=== PATIENT | female | born 1975 | race Caucasian/White ===

== ENCOUNTER 2020-04-14 09:40 | Outpatient (RCR) | payer MEDICAID, SELFPAY ==
[2020-04-14 10:07] VITALS: BP 147/100; PULSE 102; RESP 22; TEMP 36.8; BMI 46.5
[2020-04-14 12:08] VITALS: BP 138/90; PULSE 93; RESP 20
--- NOTE | 2020-04-14 12:24 | HP.PCM_ITS ---
(1) Morbid obesity with BMI of 45.0-49.9, adult Status: Chronic Current Visit: Yes Code(s): E66.01 - Morbid (severe) obesity due to excess calories; Z68.42 - Body mass index (BMI) 45.0-49.9, adult (2) Lymphedema in adult patient Status: Chronic Current Visit: Yes Code(s): I89.0 - Lymphedema, not elsewhere classified (3) Lymphedema of both lower extremities Status: Chronic Current Visit: Yes Code(s): I89.0 - Lymphedema, not elsewhere classified (4) History of opioid abuse Status: Chronic Current Visit: No Code(s): F11.11 - Opioid abuse, in remission (5) Depression Status: Chronic Current Visit: No Code(s): F32.9 - Major depressive disorder, single episode, unspecified (6) Anxiety Status: Chronic Current Visit: No Code(s): F41.9 - Anxiety disorder, unspecified (7) Osteoarthritis Status: Chronic Current Visit: Yes Qualifiers: Osteoarthritis location: knee Laterality: right Code(s): M19.90 - Unspecified osteoarthritis, unspecified site (8) Urinary incontinence Status: Chronic Current Visit: No Code(s): R32 - Unspecified urinary incontinence (9) History of right knee joint replacement Status: Chronic Current Visit: Yes Code(s): Z96.651 - Presence of right artificial knee joint (10) 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 Current Visit: Yes Code(s): Z87.39 - Personal history of other diseases of the musculoskeletal system and connective tissue (11) Surgical wound dehiscence Status: Chronic Current Visit: Yes Qualifiers: Encounter type: initial encounter Qualified Code(s): T81.31XA - Disruption of external operation (surgical) wound, not elsewhere classified, initial encounter Code(s): T81.31XA - Disruption of external operation (surgical) wound, not elsewhere classified, initial encounter (12) Surgical wound infection Status: Chronic Current Visit: Yes Code(s): T81.49XA - Infection following a procedure, other surgical site, initial encounter History of Present Illness Date of Service: 04/14/20 Chief Complaint: Surgical wound dehiscence and infection of the right knee, status post right total knee replacement surgery History of Wound: This is a 44-year-old female with a complicated past surgical history. On November 22, 2016, the patient underwent right total knee replacement arthroplasty. The seizure was performed by Dr. Elizabeth Curry. The right total knee replacement prosthesis became infected, and required removal and placement of an antibiotic spacer, the procedure which was performed by Dr. Ricardo Cruz on April 13, 2018. Subsequently, the patient underwent removal of the antibiotic spacer with reimplantation of a right total knee arthroplasty prosthesis on September 28, 2018. The reimplanted prosthetic knee joint became infected, and the patient underwent a right knee arthrotomy with irrigation and debridement and placement of a negative pressure dressing on November 19, 2018, performed by Dr. Urbano Olson. Then on May 19, 2019, the patient underwent incision and drainage of a subcutaneous right knee abscess with arthrotomy and synovectomy with debridement of the right knee, performed by Dr. Remington Abel. On February 07, 2020, Dr. Cruz performed a superficial irrigation and debridement of the right knee, at which time an abscess was noted within the surgical incision, associated with a sinus tract. At the time of the procedure, there appeared to be no communication with the underlying knee joint or bone. On March 03, 2020, the sutures were removed from her most recent surgery. According to the patient, she has had an additional washout procedure since the time of her suture removal. The patient is very limited in her ambulation, requiring a walker. She suffers from severe lymphedema in both lower extremities, which appears to be chronic, and likely congenital. She claims to sleep on a flat mattress at night. However, she is relatively inactive, and spends a good part of each day sitting idly. The patient is also morbidly obese, which also limits her mobility. Patient has recently been cared for during her recovery at [facility], having returned to her home only a few days ago. She is , though from her spouse. She lives with her son, who is able to provide some assistance in her care. According to the patient, oral doxycycline from March 05 to April 07. She is currently taking no antibiotics. 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 She denies a history of myocardial infarction, congestive heart failure, cerebrovascular accident, diabetes mellitus, pulmonary disease, renal disease, hyperlipidemia, and thyroid disease. Surgical History: - - Patient has had multiple surgical procedures involving her right knee, as documented above. Allergies/Adverse Reactions: Allergies morphine Adverse Reaction (Verified 04/14/20 10:32) Hives Home Medications: Ambulatory Orders Medication Instructions Recorded Albuterol Sulfate [Albuterol 2 puff IH Q4H PRN 04/14/20 Sulfate HFA] Collagenase [Santyl] 1 applic TOPICAL DAILY 04/14/20 Furosemide [Lasix] 40 mg PO DAILY 04/14/20 Hydrocortisone 1% Crm [Hytone] 1 applic TOPICAL BID PRN 04/14/20 Lorazepam 0.5 mg PO Q12H PRN 04/14/20 Magnesium Hydroxide [Milk Of 30 ml PO DAILY PRN PRN 04/14/20 Magnesia] - Family History Paternal - - Patient's father at the age of 64. His cause of is uncertain, though he was known to be an alcoholic. Patient's mother is living, age 66, and healthy. Social History: The patient is , though . She lives with her son. She denies the use of alcohol and tobacco products. She is unemployed, and currently on disability. Lives: With Family Smoking Status: Never smoker Tobacco Use: Non-smoker Alcohol: None Drugs: None Review of Systems Constitutional: Denies: Chills, Fever, Weight Change Eyes: Denies: Pain, Vision Change HEENT: Denies: Difficulty Hearing, Difficulty Swallowing, Sinus Congestion Cardiovascular: Denies: Chest Pain, Palpitations Respiratory: Denies: Cough, Shortness of Breath Gastrointestinal: Denies: Diarrhea, Nausea, Vomiting Genitourinary: Denies: Dysuria, Hematuria Endocrine: Denies: Heat/ Cold Intolerance, Polydipsia, Polyuria Hematologic/ Lymphatic: Reports: - - The patient has a history of chronic lower extremity lymphedema.. Denies: Easy Bruising, Easy Bleeding - Physical Exam Vital Signs Temp Pulse Resp BP 98.2 F 93 20 H 138/90 H 04/14/20 10:07 04/14/20 12:08 04/14/20 12:08 04/14/20 12:08 General: Alert, Oriented x3, Cooperative, No apparent distress, Well developed, Well nourished, - - The patient is morbidly obese. HEENT: Atraumatic, PERRLA, EOMI, Normocephalic Oral: Moist Mucosa Neck: No JVD Lungs: Normal air movement Abdomen: Non-Distended Extremities: No clubbing, No cyanosis, No Calf Tenderness, - - Severe bilateral lower extremity lymphedema is noted. A longitudinal incision is noted overlying the right knee. Near the inferior pole of the longitudinal incision, there is a dehiscence, and a wound which is undermined superiorly. Approximately 2 cm superiorly, there is also a small dehiscent portion of the incision. The more superior of the 2 wounds is quite superficial the dimensions of each wound is documented elsewhere. There is some drainage from the inferior wound, which has been cultured by swab for both aerobic and anaerobic bacterial growth. Within the inferior of the 2 wounds, there appears to be a moderate amount of bioburden and nonviable tissue. There is no significant periwound erythema. Skin: No rashes Wound Measurements and Assessment WC - Nurse 1 - General Ulcer Measurement Start: 04/14/20 10:00 Freq: Status: Active Protocol: Activity Type Activity Date Activity User E-Sign Co-Sign Detail Recorded Client Recorded Date Recorded By Document 04/14/20 10:07 [facility] [id number] 04/14/20 10:29 [facility] 04/14/20 10:07 Wound Center Nurse 1 [Ulcer Assessment] #2- R KNEE CLUSTER SUPERIOR -Combined with other wound No -Current Size (cm) - Length 2.2 -Current Size (cm) - Width 0.3 -Current Size (cm) - Depth 0.2 -Total Square Cm 0.66 -Date of Last Picture (Recall this 04/14/20 field) -Photo Taken Yes -Epithelialization None Present -Tunneling No -Undermining/Tunneling No -Circular Undermining No -Exudate Amt Medium -Exudate Type Serosanguineous -Wound Margin Distinct, Outline Attached -Granulation Amt Small (1-33%) -Granulation Quality Red -Slough/Fibrin Yes -Necrosis Amt Large (67-100%) -Necrotic Tissue Type Adherent Slough -Texture ([place]-wound Skin Appearance) Assessed, Localized Edema ,Scarring -Moisture ([place]-wound Skin Appearance Assessed ) -Color ([place]-wound Skin Appearance) Assessed, Erythema -Temperature ([place]-wound Skin No Abnormality Appearance) (Pt Warm) -Tenderness on Palpation ([place]-wound Yes Skin Appearance) -Ulcer Cleansing SOAPY WATER -Foul Odor after Cleansing No -Anesthetic Used 5% Lidocaine Gel #1- R KNEE -Combined with other wound No -Current Size (cm) - Length 2.2 -Current Size (cm) - Width 0.3 -Current Size (cm) - Depth 0.2 -Total Square Cm 0.66 -Date of Last Picture (Recall this 04/14/20 field) -Photo Taken Yes -Epithelialization None Present -Tunneling No -Undermining/Tunneling No -Circular Undermining No -Exudate Amt Medium -Exudate Type Serosanguineous -Wound Margin Distinct, Outline Attached -Granulation Amt None Present (0 %) -Slough/Fibrin Yes -Necrosis Amt Large (67-100%) -Necrotic Tissue Type Adherent Slough -Texture ([place]-wound Skin Appearance) Assessed, Localized Edema ,Scarring -Moisture ([place]-wound Skin Appearance Assessed ) -Color ([place]-wound Skin Appearance) Assessed, Erythema -Temperature ([place]-wound Skin No Abnormality Appearance) (Pt Warm) -Tenderness on Palpation ([place]-wound Yes Skin Appearance) -Ulcer Cleansing SOAPY WATER -Foul Odor after Cleansing No -Anesthetic Used 5% Lidocaine Gel [Edema Assessment] -Lower Limb Edema Present Yes -Right Calf (cm) 71.2 -Right Ankle (cm) 44.6 -Left Calf (cm) 84 -Left Ankle (cm) 40.7 WC - Nurse 3 - General Ulcer D/C NN Start: 04/14/20 10:00 Freq: Status: Active Protocol: Activity Type Activity Date Activity User E-Sign Co-Sign Detail Recorded Client Recorded Date Recorded By Document 04/14/20 12:08 [facility] [id number] 04/14/20 12:11 [facility] 04/14/20 12:08 Wound Care Nurse 3 [Wound Dressing] #2- R KNEE CLUSTER SUPERIOR -Ulcer Cleansing Rinsed/ Irrigated with Saline -Foul Odor after Cleansing No -Primary Dressing Applied Nugauze, Plain Iodoform -Other Dressing 07/20 in -Primary Dressing Covered/Secured Dry Gauze, with Secured with Tape,Other -Other Covering abd -Nugauze, Plain Iodoform 07/20 1 #1- R KNEE -Ulcer Cleansing Rinsed/ Irrigated with Saline -Foul Odor after Cleansing No -Primary Dressing Applied Other -Other Dressing nugauze 07/20 in plain -Primary Dressing Covered/Secured Dry Gauze, with Secured with Tape,Other -Other Covering abd [Post Procedure Tolerated] -Treatment Response Procedure Tolerated Well Vital Signs [Pulse] -Pulse Rate (60-100) 93 -Pulse Location Monitor [Respirations] -Respiratory Rate (12-18) 20 H -Respiratory rate source Observation -Oxygen Delivery Method Room Air [Blood Pressure] -Blood Pressure (90/60-120/80) 138/90 H -Blood Pressure Mean (mm Hg) 106 -Source Monitor -Position Sitting -Blood Pressure Location Left Forearm Pain Scale: 0-10 Numeric [Pain] -Is Patient Pain Free? Yes WC - Visit Discharge [Visit Discharge Information] -Discharge Condition Stable -Ambulatory Status Ambulatory, Walker -Transportation Private Auto Neurological: Cranial nerves II-XII grossly intact, Neuro grossly intact Psych/Mental Status: Normal Affect, Appropriate, Alert and oriented to time, place, person, mood and affect Debridement Note Post-Debridement Measurements/Treatment WC - Nurse 3 - General Ulcer D/C NN Start: 04/14/20 10:00 Freq: Status: Active Protocol: Activity Type Activity Date Activity User E-Sign Co-Sign Detail Recorded Client Recorded Date Recorded By Document 04/14/20 12:08 [facility] [id number] 04/14/20 12:11 [facility] 04/14/20 12:08 Wound Care Nurse 3 #2- R KNEE CLUSTER SUPERIOR -Ulcer Cleansing Rinsed/ Irrigated with Saline -Foul Odor after Cleansing No -Primary Dressing Applied Nugauze, Plain Iodoform -Other Dressing 07/20 in -Primary Dressing Covered/Secured with Dry Gauze, Secured with Tape,Other -Other Covering abd -Nugauze, Plain Iodoform 07/20 1 #1- R KNEE -Ulcer Cleansing Rinsed/ Irrigated with Saline -Foul Odor after Cleansing No -Primary Dressing Applied Other -Other Dressing nugauze 1/4 in plain -Primary Dressing Covered/Secured with Dry Gauze, Secured with Tape,Other -Other Covering abd Treatment Response Procedure Tolerated Well Vital Signs Pulse Rate (60-100) 93 Pulse Location Monitor Respiratory Rate (12-18) 20 H Respiratory rate source Observation Oxygen Delivery Method Room Air Blood Pressure (90/60-120/80) 138/90 H Blood Pressure Mean (mm Hg) 106 Source Monitor Position Sitting Blood Pressure Location Left Forearm Pain Scale: 0-10 Numeric Is Patient Pain Free? Yes WC - Visit Discharge Discharge Condition Stable Ambulatory Status Ambulatory, Walker Transportation Private Auto Laterality: Right - Knee Type of Debridement: Excisional debridement Anesthesia Used: 5% Lidocaine Gel Depth: Down to and including healthy tissue, in the subcutaneous layer Percentage of wound debrided: 100 Instrument Used: 5mm curette Tissue Removed: Bioburden and nonviable tissue Severity: Fat Layer Exposed Amount of bleeding with debridement: Mild Bleeding Controlled with: Compression and gauze Patient tolerated procedure well Assessment/Plan Active Problems Morbid obesity with BMI of 45.0-49.9, adult (Chronic) Lymphedema in adult patient (Chronic) Lymphedema of both lower extremities (Chronic) Osteoarthritis (Chronic) History of right knee joint replacement (Chronic) 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 She has previously undergone right total knee replacement surgery, the prosthesis of which became infected, and required placement of an antibiotic spacer and removal of the prosthesis. The prosthesis was subsequently replaced. The procedures are documented chronologically above. The patient presents at this time with an apparent wound infection and dehiscence of the inferior pole of her surgical incision. While it is presumed that there is no extension into the underlying joint space, this cannot be totally excluded. Plan: We are to obtain a battery of diagnostic studies. First, laboratory tests will be obtained, including a CBC, comprehensive metabolic profile, and a serum prealbumin. Swab cultures have been obtained of the patient's right knee wound, for both aerobic and anaerobic bacterial growth. These results will be awaited. A noninvasive lower extremity arterial study is to be obtained. The severe lymphedema in the patient's lower extremities may preclude the performance of this study, yet to be determined. An ultrasound of the right knee joint is to be ordered, to determine whether there is significant fluid within the knee joint itself, which may be an indication of infection, and may warrant aspiration. In terms of therapeutic intervention, the patient has been advised to elevate her lower extremities as much as possible. She is to elevate her lower extremities to heart level, or higher. She is to continue sleeping on a flat mattress at night. Activity has been encouraged. Prolonged, idle sitting has been discouraged. Weight loss has been recommended. We will ultimately implement some form of compression once the results of her noninvasive lower extremity arterial study are known. Ultimately, we intend to refer the patient to our Lymphedema Clinic, though such referral must await complete healing of her wound. We are to initiate treatment of the dehiscent surgical right knee wound using saline moistened Nu Gauze packing on a daily basis. The patient has been instructed in the appropriate means of packing, with anticipation that she will be assisted by her son. The patient is to return in 1 week for reass essment. We will await the results of the diagnostic studies, and respond accordingly. The goal is to determine with reasonable certainty whether infection involves the knee joint. If this is determined to be unlikely, then the focus will remain solely on the healing relative to the soft tissues in the area of the right knee. The patient is not a smoker. Influenza vaccine was not administered today. Patient weighs 280 pounds. She stands 5 feet 5 inches tall. Her BMI is 46.6, which places her in a class III obesity category. Weight loss has been recommended, in collaboration with her primary care physician has been advised.
== END 2020-04-15 23:59 ==
LOC: WC 09:40
PROVIDERS: Referring Provider Nurse Practitioner Adult Health; Visit Provider Surgery
DX: T81.31XA Disruption of external operation (surgical) wound, not elsewhere classified, initial encounter (principal); I89.0 Lymphedema, not elsewhere classified; E66.01 Morbid (severe) obesity due to excess calories; Z68.42 Body mass index [BMI] 45.0-49.9, adult; F11.11 Opioid abuse, in remission; F32.9 Major depressive disorder, single episode, unspecified; F41.9 Anxiety disorder, unspecified; M19.90 Unspecified osteoarthritis, unspecified site; R32 Unspecified urinary incontinence; Z96.651 Presence of right artificial knee joint; Y83.1 Surgical operation with implant of artificial internal device as the cause of abnormal reaction of the patient, or of later complication, without mention of misadventure at the time of the procedure; T81.49XA Infection following a procedure, other surgical site, initial encounter
CPT/HCPCS: 11042; 87070; 87075; 87077; 87186; 87205; 99213; G0463

== ENCOUNTER 2020-04-28 11:30 | Outpatient (RCR) | payer MEDICAID, SELFPAY ==
[2020-04-16 00:51] VITALS: BP 138/90; PULSE 93; RESP 20; TEMP 36.8
[2020-04-21 09:00] LABS: Erythrocyte Sedimentation Rate 70 mm/hr (0-20)
[2020-04-21 09:02] LABS: Absolute Lymphocyte Count 1.26 X10^3/uL (0.83-4.51); Basophil# 0.04 X10^3/uL; Basophil% 0.6 % (0-1); Eosinophil# 0.21 X10^3/uL; Hematocrit 35.7 % (37-47); Hemoglobin 11.3 g/dL (12.0-15.0); Lymphocyte # 1.26 X10^3/ul (4.0); Mean Corp Hgb Conc 31.7 g/dL (32-36); Mean Corpuscular Hgb 27.7 pg (27.0-32.0); Mean Corpuscular Volume 87.5 fL (81-99); Mean Platelet Vol. 9.7 fl (6.2-12.0); Monocyte# 0.51 X10^3/uL; Monocyte% 7.3 % (0-10); NRBC Flagged by Analyzer 0 % (0-5); Neutrophil # 4.95 X10^3/uL (2.7-7.7); Neutrophil % 70.7 % (47-70); Platelet Count 303 K/mm3 (150-450); RBC Distribution Width CV 15.5 % (11.6-14.6); RBC Distribution Width SD 48.6 fl (35.1-43.9); Red Blood Count 4.08 M/mm3 (4.2-5.4)
[2020-04-21 11:28] VITALS: BP 138/80; PULSE 83; RESP 16; TEMP 36.7; BMI 46.5
[2020-04-21 11:42] LABS: ALB/GLOB Ratio 0.8 RATIO (0.9-2.4); AST(SGOT) 15 U/L (15-37); Alanine Aminotransfer ALT/SGPT 19 U/L (13-56); Albumin, Serum 3.7 g/dL (3.2-5.0); Alkaline Phosphatase 88 U/L (45-117); Anion Gap 5 (5-15); BUN 13 mg/dL (7-18); BUN/Creat Ratio 16.3 RATIO (10-20); Calcium,Total 8.9 mg/dL (8.5-10.1); Chloride 108 mmol/L (98-107); EST Glomerular Filtration Rate 84 mL/min (>60); Est Glom Filt Rate - Afr Amer 101 mL/min (>60); Estimated Creatinine Clearance 81.59 ml/min; Globulin 4.8 g/dL (2.2-4.2); Glucose 102 mg/dL (74-106); Prealbumin 15.9 mg/dL (20.0-40.0); Protein, Total 8.5 g/dL (6.4-8.2); Sodium Level 136 mmol/L (136-145)
--- NOTE | 2020-04-21 12:04 | HP.PCM_ITS ---
(1) Morbid obesity with BMI of 45.0-49.9, adult Status: Chronic Current Visit: Yes Code(s): E66.01 - Morbid (severe) obesity due to excess calories; Z68.42 - Body mass index [BMI] 45.0-49.9, adult (2) Lymphedema in adult patient Status: Chronic Current Visit: Yes Code(s): I89.0 - Lymphedema, not elsewhere classified (3) Lymphedema of both lower extremities Status: Chronic Current Visit: Yes Code(s): I89.0 - Lymphedema, not elsewhere classified (4) History of opioid abuse Status: Chronic Current Visit: No Code(s): F11.11 - Opioid abuse, in remission (5) Depression Status: Chronic Current Visit: No Code(s): F32.9 - Major depressive disorder, single episode, unspecified (6) Anxiety Status: Chronic Current Visit: No Code(s): F41.9 - Anxiety disorder, unspecified (7) Osteoarthritis Status: Chronic Current Visit: Yes Qualifiers: Osteoarthritis location: knee Laterality: right Code(s): M19.90 - Unspecified osteoarthritis, unspecified site (8) Urinary incontinence Status: Chronic Current Visit: No Code(s): R32 - Unspecified urinary incontinence (9) History of right knee joint replacement Status: Chronic Current Visit: Yes Code(s): Z96.651 - Presence of right artificial knee joint (10) 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 Current Visit: Yes Code(s): Z87.39 - Personal history of other diseases of the musculoskeletal system and connective tissue (11) Surgical wound dehiscence Status: Chronic Current Visit: Yes Qualifiers: Encounter type: subsequent encounter Qualified Code(s): T81.31XD - Disruption of external operation (surgical) wound, not elsewhere classified, subsequent encounter Code(s): T81.31XA - Disruption of external operation (surgical) wound, not elsewhere classified, initial encounter (12) Surgical wound infection Status: Chronic Current Visit: Yes Code(s): T81.49XA - Infection following a procedure, other surgical site, initial encounter History of Present Illness Date of Service: 04/21/20 Chief Complaint: Surgical wound dehiscence and infection of the right knee, status post right total knee replacement surgery History of Wound: This is a 44-year-old female with a complicated past surgical history. On November 22, 2016, the patient underwent right total knee replacement arthroplasty. The seizure was performed by Dr. Elizabeth Curry. The right total knee replacement prosthesis became infected, and required removal and placement of an antibiotic spacer, the procedure which was performed by Dr. Ricardo Cruz on April 13, 2018. Subsequently, the patient underwent removal of the antibiotic spacer with reimplantation of a right total knee arthroplasty prosthesis on September 28, 2018. The reimplanted prosthetic knee joint became infected, and the patient underwent a right knee arthrotomy with irrigation and debridement and placement of a negative pressure dressing on November 19, 2018, performed by Dr. Urbano Olson. Then on May 19, 2019, the patient underwent incision and drainage of a subcutaneous right knee abscess with arthrotomy and synovectomy with debridement of the right knee, performed by Dr. Remington Abel. On February 07, 2020, Dr. Cruz performed a superficial irrigation and debridement of the right knee, at which time an abscess was noted within the surgical incision, associated with a sinus tract. At the time of the procedure, there appeared to be no communication with the underlying knee joint or bone. On March 03, 2020, the sutures were removed from her most recent surgery. According to the patient, she has had an additional washout procedure since the time of her suture removal. The patient is very limited in her ambulation, requiring a walker. She suffers from severe lymphedema in both lower extremities, which appears to be chronic, and likely congenital. She claims to sleep on a flat mattress at night. However, she is relatively inactive, and spends a good part of each day sitting idly. The patient is also morbidly obese, which also limits her mobility. Patient has recently been cared for during her recovery at [facility], having returned to her home only a few days ago. She is , though from her spouse. She lives with her son, who is able to provide some assistance in her care. According to the patient, oral doxycycline from March 05 to April 07. She is currently taking no antibiotics. 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 Allergies/Adverse Reactions: Allergies morphine Adverse Reaction (Verified 04/14/20 10:32) Hives Home Medications: Ambulatory Orders Medication Instructions Recorded Albuterol Sulfate [Albuterol 2 puff IH Q4H PRN 04/14/20 Sulfate HFA] Collagenase [Santyl] 1 applic TOPICAL DAILY 04/14/20 Furosemide [Lasix] 40 mg PO DAILY 04/14/20 Hydrocortisone 1% Crm [Hytone] 1 applic TOPICAL BID PRN 04/14/20 Lorazepam 0.5 mg PO Q12H PRN 04/14/20 Magnesium Hydroxide [Milk Of 30 ml PO DAILY PRN PRN 04/14/20 Magnesia] - Family History Paternal - - Patient's father at the age of 64. His cause of is uncertain, though he was known to be an alcoholic. Patient's mother is living, age 66, and healthy. Smoking Status: Never smoker Tobacco Use: Non-smoker Review of Systems Constitutional: Denies: Chills, Fever, Weight Change Eyes: Denies: Pain, Vision Change HEENT: Denies: Difficulty Hearing, Difficulty Swallowing, Sinus Congestion Cardiovascular: Denies: Chest Pain, Palpitations Respiratory: Denies: Cough, Shortness of Breath Gastrointestinal: Denies: Diarrhea, Nausea, Vomiting Genitourinary: Denies: Dysuria, Hematuria Endocrine: Denies: Heat/ Cold Intolerance, Polydipsia, Polyuria Hematologic/ Lymphatic: Denies: Easy Bruising, Easy Bleeding - Physical Exam Vital Signs Temp Pulse Resp BP 98.0 F 83 16 138/80 H 04/21/20 11:28 04/21/20 11:28 04/21/20 11:28 04/21/20 11:28 General: Alert, Oriented x3, Cooperative, No apparent distress, Well developed, Well nourished, - - The patient is morbidly obese HEENT: Atraumatic, PERRLA, EOMI, Normocephalic Oral: Moist Mucosa Neck: No JVD Lungs: Normal air movement Abdomen: Non-Distended, Obese Extremities: No clubbing, No cyanosis, No Calf Tenderness, - - Severe swelling, edema, and lymphedema remain in the patient's lower extremities bilaterally. Her longitudinal right knee incision is well approximated throughout, but for 2 areas inferiorly. The most inferior site is widely dehiscent, undermined, and tracks to several centimeters in depth. There is a large amount of bioburden and nonviable tissue present. Dimensions are documented elsewhere. The more superior of the 2 dehiscence sites is quite small and superficial in nature. Mild periwound erythema is noted. Wound Measurements and Assessment WC - Nurse 1 - General Ulcer Measurement Start: 04/21/20 11:28 Freq: Status: Active Protocol: Activity Type Activity Date Activity User E-Sign Co-Sign Detail Recorded Client Recorded Date Recorded By Document 04/21/20 11:28 DL [id number] 04/21/20 11:36 DL 04/21/20 11:28 Wound Center Nurse 1 [Ulcer Assessment] #2- R KNEE CLUSTER SUPERIOR -Current Size (cm) - Length 0.7 -Current Size (cm) - Width 0.3 -Current Size (cm) - Depth 0.8 -Total Square Cm 0.21 -Exudate Amt Small -Exudate Type Serosanguineous -Wound Margin Distinct, Outline Attached -Granulation Amt None Present (0 %) -Necrosis Amt Small (1-33%) -Necrotic Tissue Type Adherent Slough -Structure Exposed N/A -Texture ([place]-wound Skin Appearance) Localized Edema ,Scarring -Moisture ([place]-wound Skin Appearance No Abnormality ) -Color ([place]-wound Skin Appearance) Erythema,Rubor -Temperature ([place]-wound Skin No Abnormality Appearance) (Pt Warm) -Tenderness on Palpation ([place]-wound Yes Skin Appearance) -Ulcer Cleansing Wound Cleanser -Foul Odor after Cleansing No -Anesthetic Used 4% Lidocaine Solution #1- R KNEE -Current Size (cm) - Length 2.8 -Current Size (cm) - Width 1 -Current Size (cm) - Depth 3.8 -Total Square Cm 2.8 -Exudate Amt Large -Exudate Type Serosanguineous -Wound Margin Thickened & Rolled Under -Granulation Amt None Present (0 %) -Slough/Fibrin Yes -Necrosis Amt Large (67-100%) -Necrotic Tissue Type Adherent Slough -Structure Exposed N/A -Texture ([place]-wound Skin Appearance) No Abnormality, Localized Edema ,Scarring -Moisture ([place]-wound Skin Appearance No Abnormality ) -Color ([place]-wound Skin Appearance) Erythema,Rubor -Temperature ([place]-wound Skin No Abnormality Appearance) (Pt Warm) -Tenderness on Palpation ([place]-wound No Skin Appearance) -Ulcer Cleansing Wound Cleanser -Foul Odor after Cleansing No -Anesthetic Used 4% Lidocaine Solution Musculoskeletal: No Muscle Wasting Neurological: Cranial nerves II-XII grossly intact, Neuro grossly intact Psych/Mental Status: Normal Affect, Appropriate, Alert and oriented to time, place, person, mood and affect Debridement Note Laterality: Right - Surgical wound dehiscence of the knee Type of Debridement: Excisional debridement Anesthesia Used: 5% Lidocaine Gel Depth: Down to and including healthy tissue, in the subcutaneous layer Percentage of wound debrided: 100 Instrument Used: 7mm curette Tissue Removed: Bioburden and nonviable tissue Severity: Fat Layer Exposed Amount of bleeding with debridement: Mild Bleeding Controlled with: Compression and gauze Patient tolerated procedure well Assessment/Plan Active Problems Morbid obesity with BMI of 45.0-49.9, adult (Chronic) Lymphedema in adult patient (Chronic) Lymphedema of both lower extremities (Chronic) Osteoarthritis (Chronic) History of right knee joint replacement (Chronic) 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 She has previously undergone right total knee replacement surgery, the prosthesis of which became infected, and required placement with an antibiotic spacer and removal of the prosthesis. The prosthesis was subsequently replaced. The procedures are documented chronologically above. The patient presents at this time with an apparent wound infection and dehiscence of the inferior pole of her right knee surgical incision. While it is presumed that there is no extension into the underlying joint space, this cannot be totally excluded. Plan: We are to obtain a battery of diagnostic studies. First, laboratory tests were ordered, and results have been obtained, as follows: Sodium 136, potassium 4.0, chloride 108, BUN 13, creatinine 0.80, glucose 102, calcium 8.9, total bilirubin 0.50, AST 15, ALT 19, alkaline phosphatase 88, total protein 8.5, albumin 3.7, serum prealbumin 15.9, white blood count 7.0, hemoglobin 11.3, hematocrit 35.7, platelets 303,000, sed rate 70. Swab cultures were obtained of the patient's right knee wound at her initial visit last week, for both aerobic and anaerobic bacterial growth. The initial results were positive for Enterococcus faecalis. Based upon sensitivity results, the patient was placed on amoxicillin 1 g p.o. 3 times daily for 10 days. However, since the initial culture results were available, additional bacterial isolates have been identifi ed. Another aerobic bacteria, Kocuria kristinae, has been identified. In addition, 3 anaerobic bacteria have been isolated, including a Bacteroides species, Prevotella Bivia, and and anaerobic cocci. As result of these isolates, both aerobic and anaerobic, and the complicated nature of the patient's infection, we are to seek consultation with our infectious disease service, Dr. Vega, who will be asked to evaluate the patient and recommend appropriate management. The patient's orthopedic physician's office had contacted our facility several days ago, expressing some concern that we had proceeded to treat the infection as we deemed appropriate. Our nursing staff will contact the orthopedic office to discuss treatment options, and the ongoing role of the patient's surgeon, as continued involvement of the patient's orthopedic surgeon may be of benefit to the multidisciplinary approach to the patient's right knee problems. A noninvasive lower extremity arterial study is to be obtained. The severe lymphedema in the patient's lower extremities may preclude the performance of this study, yet to be determined. An ultrasound of the right knee joint is to be ordered, to determine whether there is significant fluid within the knee joint itself, which may be an indication of infection, and may warrant aspiration. If aspiration is deemed necessary, it is likely that involvement of the orthopedic surgeon would be necessary. The patient has been advised to elevate her lower extremities as much as possible. She is to elevate her lower extremities to heart level, or higher. She is to continue sleeping on a flat mattress at night. Activity has been encouraged. Prolonged, idle sitting has been discouraged. Weight loss has been recommended. We will ultimately implement some form of compression once the results of her noninvasive lower extremity arterial study are known. Ultimately, we intend to refer the patient to our Lymphedema Clinic, though such referral must await complete healing of her wound. We are to continue treatment of the dehiscent surgical right knee wound using saline-moistened Nu Gauze packing on a daily basis. The patient has been instructed in the appropriate means of packing, with anticipation that she will be assisted by her son. The patient is to return in 1 week for reassessment. We will await the results of the diagnostic studies, and respond accordingly. The goal is to determine with reasonable certainty whether infection involves the knee joint. If this is determined to be unlikely, then the focus will remain solely on the healing relative to the soft tissues in the area of the right knee. The patient is not a smoker. Influenza vaccine was not administered today. Patient weighs 280 pounds. She stands 5 feet 5 inches tall. Her BMI is 46.6, which places her in a class III obesity category. Weight loss has been recommended, in collaboration with her primary care physician has been advised.
--- NOTE | 2020-04-23 11:27 | WC ---
Spoke with [facility] and they are replacing order as they have no current tracking so they are stating the package is lost in transit
[2020-04-28 10:53] VITALS: BP 147/88; PULSE 91; RESP 20; TEMP 36.4; BMI 46.5
[2020-04-28 11:38] VITALS: BP 142/79; PULSE 78; RESP 20; TEMP 36.4
--- NOTE | 2020-04-28 12:16 | HP.PCM_ITS ---
(1) Morbid obesity with BMI of 45.0-49.9, adult Status: Chronic Code(s): E66.01 - Morbid (severe) obesity due to excess ca lories; Z68.42 - Body mass index [BMI] 45.0-49.9, adult (2) Lymphedema in adult patient Status: Chronic Code(s): I89.0 - Lymphedema, not elsewhere classified (3) Lymphedema of both lower extremities Status: Chronic Code(s): I89.0 - Lymphedema, not elsewhere classified (4) History of opioid abuse Status: Chronic Code(s): F11.11 - Opioid abuse, in remission (5) Depression Status: Chronic Code(s): F32.9 - Major depressive disorder, single episode, unspecified (6) Anxiety Status: Chronic Code(s): F41.9 - Anxiety disorder, unspecified (7) Osteoarthritis Status: Chronic Qualifiers: Osteoarthritis location: knee Laterality: right Code(s): M19.90 - Unspecified osteoarthritis, unspecified site (8) Urinary incontinence Status: Chronic Code(s): R32 - Unspecified urinary incontinence (9) History of right knee joint replacement Status: Chronic Code(s): Z96.651 - Presence of right artificial knee joint (10) 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 Code(s): Z87.39 - Personal history of other diseases of the musculoskeletal system and connective tissue (11) Surgical wound dehiscence Status: Chronic Qualifiers: Encounter type: subsequent encounter Qualified Code(s): T81.31XD - Disruption of external operation (surgical) wound, not elsewhere classified, subsequent encounter Code(s): T81.31XA - Disruption of external operation (surgical) wound, not elsewhere classified, initial encounter (12) Surgical wound infection Status: Chronic Code(s): T81.49XA - Infection following a procedure, other surgical site, initial encounter History of Present Illness Date of Service: 04/28/20 Chief Complaint: Surgical wound dehiscence and infection of the right knee, status post right total knee replacement surgery History of Wound: This is a 44-year-old female with a complicated past surgical history. On November 22, 2016, the patient underwent right total knee replacement arthroplasty. The seizure was performed by Dr. Elizabeth Curry. The right total knee replacement prosthesis became infected, and required removal and placement of an antibiotic spacer, the procedure which was performed by Dr. Ricardo Cruz on April 13, 2018. Subsequently, the patient underwent removal of the antibiotic spacer with reimplantation of a right total knee arthroplasty prosthesis on September 28, 2018. The reimplanted prosthetic knee joint became infected, and the patient underwent a right knee arthrotomy with irrigation and debridement and placement of a negative pressure dressing on November 19, 2018, performed by Dr. Urbano Olson. Then on May 19, 2019, the patient underwent incision and drainage of a subcutaneous right knee abscess with arthrotomy and synovectomy with debridement of the right knee, performed by Dr. Remington Abel. On February 07, 2020, Dr. Cruz performed a superficial irrigation and debridement of the right knee, at which time an abscess was noted within the surgical incision, associated with a sinus tract. At the time of the procedure, there appeared to be no communication with the underlying knee joint or bone. On March 03, 2020, the sutures were removed from her most recent surgery. According to the patient, she has had an additional washout procedure since the time of her suture removal. The patient is very limited in her ambulation, requiring a walker. She suffers from severe lymphedema in both lower extremities, which appears to be chronic, and likely congenital. She claims to sleep on a flat mattress at night. However, she is relatively inactive, and spends a good part of each day sitting idly. The patient is also morbidly obese, which also limits her mobility. Patient has recently been cared for during her recovery at [facility], having returned to her home only a few days ago. She is , though from her spouse. She lives with her son, who is able to provide some assistance in her care. According to the patient, oral doxycycline from March 05 to April 07. She is currently taking no antibiotics. 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 Allergies/Adverse Reactions: Allergies morphine Adverse Reaction (Verified 04/14/20 10:32) Hives Home Medications: Ambulatory Orders Medication Instructions Recorded Albuterol Sulfate [Albuterol 2 puff IH Q4H PRN 04/14/20 Sulfate HFA] Collagenase [Santyl] 1 applic TOPICAL DAILY 04/14/20 Furosemide [Lasix] 40 mg PO DAILY 04/14/20 Hydrocortisone 1% Crm [Hytone] 1 applic TOPICAL BID PRN 04/14/20 Lorazepam 0.5 mg PO Q12H PRN 04/14/20 Magnesium Hydroxide [Milk Of 30 ml PO DAILY PRN PRN 04/14/20 Magnesia] - Family History Paternal - - Patient's father at the age of 64. His cause of is uncertain, though he was known to be an alcoholic. Patient's mother is living, age 66, and healthy. Smoking Status: Never smoker Tobacco Use: Non-smoker Review of Systems Constitutional: Denies: Chills, Fever, Weight Change Eyes: Denies: Pain, Vision Change HEENT: Denies: Difficulty Hearing, Difficulty Swallowing, Sinus Congestion Cardiovascular: Denies: Chest Pain, Palpitations Respiratory: Denies: Cough, Shortness of Breath Gastrointestinal: Denies: Diarrhea, Nausea, Vomiting Genitourinary: Denies: Dysuria, Hematuria Endocrine: Denies: Heat/ Cold Intolerance, Polydipsia, Polyuria Hematologic/ Lymphatic: Denies: Easy Bruising, Easy Bleeding - Physical Exam Vital Signs Temp Pulse Resp BP 97.5 F L 78 20 H 142/79 H 04/28/20 11:38 04/28/20 11:38 04/28/20 11:38 04/28/20 11:38 General: Alert, Oriented x3, Cooperative, No apparent distress, Well developed, Well nourished HEENT: Atraumatic, PERRLA, EOMI, Normocephalic Oral: Moist Mucosa Neck: No JVD Lungs: Normal air movement Abdomen: Non-Distended, Obese Extremities: No clubbing, No cyanosis, No Calf Tenderness, - - Severe swelling, edema, and lymphedema persist in the patient's lower extremities bilaterally. The longitudinal right knee incision remains open and dehiscent inferiorly. The more superior dehiscence site appears nearly healed. The size of the remaining wound is documented elsewhere. It appears Wound Measurements and Assessment WC - Nurse 1 - General Ulcer Measurement Start: 04/21/20 11:28 Freq: Status: Active Protocol: Activity Type Activity Date Activity User E-Sign Co-Sign Detail Recorded Client Recorded Date Recorded By Document 04/28/20 10:53 [facility] [id number] 04/28/20 11:04 [facility] 04/28/20 10:53 Wound Center Nurse 1 [Ulcer Assessment] #2- R KNEE CLUSTER SUPERIOR -Combined with other wound No -Current Size (cm) - Length 0.1 -Current Size (cm) - Width 0.1 -Current Size (cm) - Depth 0.1 -Total Square Cm 0.01 -Epithelialization Large 67-100% -Tunneling No -Undermining/Tunneling No -Circular Undermining No -Exudate Amt None Present -Slough/Fibrin Yes -Necrosis Amt Small (1-33%) -Necrotic Tissue Type Adherent Slough -Texture ([place]-wound Skin Appearance) Assessed, Scarring -Moisture ([place]-wound Skin Appearance Assessed ) -Color ([place]-wound Skin Appearance) Assessed -Temperature ([place]-wound Skin No Abnormality Appearance) (Pt Warm) -Tenderness on Palpation ([place]-wound No Skin Appearance) -Ulcer Cleansing Rinsed/ Irrigated with Saline -Foul Odor after Cleansing No -Anesthetic Used 4% Lidocaine Solution #1- R KNEE -Combined with other wound No -Current Size (cm) - Length 2.6 -Current Size (cm) - Width 0.9 -Current Size (cm) - Depth 2.3 -Total Square Cm 2.34 -Photo Taken No -Epithelialization None Present -Tunneling No -Undermining/Tunneling No -Circular Undermining No -Exudate Amt Medium -Exudate Type Serosanguineous -Wound Margin Distinct, Outline Attached -Granulation Amt Small (1-33%) -Granulation Quality Red -Slough/Fibrin Yes -Necrosis Amt Large (67-100%) -Necrotic Tissue Type Adherent Slough -Texture ([place]-wound Skin Appearance) Assessed, Scarring -Moisture ([place]-wound Skin Appearance Assessed,Dry/ ) Scaly -Color ([place]-wound Skin Appearance) Assessed -Temperature ([place]-wound Skin No Abnormality Appearance) (Pt Warm) -Tenderness on Palpation ([place]-wound No Skin Appearance) -Ulcer Cleansing Rinsed/ Irrigated with Saline -Foul Odor after Cleansing No -Anesthetic Used 4% Lidocaine Solution [Edema Assessment] -Lower Limb Edema Present Yes -Right Calf (cm) 67.8 -Right Ankle (cm) 43.5 DOUG - Nurse 3 - General Ulcer D/C NN Start: 04/21/20 11:28 Freq: Status: Active Protocol: Activity Type Activity Date Activity User E-Sign Co-Sign Detail Recorded Client Recorded Date Recorded By Document 04/28/20 11:38 [facility] [id number] 04/28/20 11:41 [facility] 04/28/20 11:38 Wound Care Nurse 3 [Wound Dressing] #2- R KNEE CLUSTER SUPERIOR -Ulcer Cleansing Rinsed/ Irrigated with Saline -Foul Odor after Cleansing No -Primary Dressing Applied Nugauze, Plain Iodoform -Primary Dressing Covered/Secured Dry Gauze, with Secured with Tape -Nugauze, Plain Iodoform 1/4 1 #1- R KNEE -Ulcer Cleansing Rinsed/ Irrigated with Saline -Foul Odor after Cleansing No -Other Dressing Nugauze -Primary Dressing Covered/Secured Dry Gauze, with Secured with Tape [Post Procedure Tolerated] -Treatment Response Procedure Tolerated Well Vital Signs [Temperature Protocol: VS] -Temperature (97.8 F-99.1 F) 97.5 F L -Temperature Source Temporal [Pulse] -Pulse Rate (60-100) 78 -Pulse Location Monitor [Respirations] -Respiratory Rate (12-18) 20 H -Respiratory rate source Observation [Blood Pressure] -Blood Pressure (90/60-120/80) 142/79 H -Blood Pressure Mean (mm Hg) 100 -Source Monitor Pain Scale: 0-10 Numeric [Pain] -Is Patient Pain Free? Yes WC - Visit Discharge [Visit Discharge Information] -Discharge Condition Stable -Ambulatory Status Ambulatory, Walker -Transportation Private Auto Neurological: Cranial nerves II-XII grossly intact, Neuro grossly intact Psych/Mental Status: Normal Affect, Appropriate, Alert and oriented to time, place, person, mood and affect Debridement Note Post-Debridement Measurements/Treatment DOUG - Nurse 2 - General Ulcer CM Notes Start: 04/21/20 11:28 Freq: Status: Active Protocol: Activity Type Activity Date Activity User E-Sign Co-Sign Detail Recorded Client Recorded Date Recorded By Document 04/21/20 18:14 [address] [id number] 04/21/20 18:16 PL 04/21/20 18:14 Wound Center Nurse 2 #2- R KNEE CLUSTER SUPERIOR -Time 11:48 -Correct Patient Yes -Correct Side, Site, Position Yes -Correct Procedure Yes -Procedure Performed Yes -Type of Procedure Debridement -Clinical Debridement Subcutaneous -Tissue Removed Subcutaneous -Post Debridement (cm) - Length 2.8 -Post Debridement (cm) - Width 1 -Post Debridement (cm) - Depth 3.5 -Total Square (Post) (cm) 2.8 -Area of Debridement (cm) - Length 2.8 -Area of Debridement (cm) - Width 1 -Total Square (Area) (cm) 2.8 -Tunneling No -Undermining/Tunneling No -Circular Undermining No -Wound/Ulcer Outcome Not Healed -Ulcer Cleansing Rinsed/ Irrigated with Saline -Foul Odor after Cleansing No -Bioengineered Tissue No -Debridement - Subq, 1st 20sq cm Yes #1- R KNEE -Procedure Performed No -Wound/Ulcer Outcome Healed- Epithelialized Pain Scale: 0-10 Numeric Is Patient Pain Free? Yes WC - Nurse 3 - General Ulcer D/C NN Start: 04/21/20 11:28 Freq: Status: Active Protocol: Activity Type Activity Date Activity User E-Sign Co-Sign Detail Recorded Client Recorded Date Recorded By Document 04/21/20 12:06 [facility] [id number] 04/21/20 12:07 [facility] Document 04/28/20 11:38 [facility] [id number] 04/28/20 11:41 [facility] 04/21/20 04/28/20 12:06 11:38 Wound Care Nurse 3 #2- R KNEE CLUSTER SUPERIOR -Ulcer Cleansing Rinsed/ Irrigated with Saline -Foul Odor after Cleansing No -Primary Dressing Applied Other Nugauze, Plain Iodoform -Primary Dressing Covered/Secured with Dry Gauze, Dry Gauze, Secured with Secured with Tape,Other Tape -Other Covering abd -Nugauze, Plain Iodoform / 1 #1- R KNEE -Ulcer Cleansing Rinsed/ Irrigated with Saline -Foul Odor after Cleansing No -Primary Dressing Applied Other -Other Dressing packed w/ gauze Nugauze per dr roque -Primary Dressing Covered/Secured with Dry Gauze, Dry Gauze, Secured with Secured with Tape,Other Tape -Other Covering abd Treatment Response Procedure Procedure Tolerated Well Tolerated Well Vital Signs Temperature (97.8 F-99.1 F) 97.5 F L Temperature Source Temporal Pulse Rate (60-100) 78 Pulse Location Monitor Respiratory Rate (12-18) 20 H Respiratory rate source Observation Blood Pressure (90/60-120/80) 142/79 H Blood Pressure Mean (mm Hg) 100 Source Monitor Pain Scale: 0-10 Numeric Is Patient Pain Free? Yes Yes WC - Visit Discharge Discharge Condition Stable Stable Ambulatory Status Ambulatory, Ambulatory, Walker Walker Transportation Private Auto Private Auto Laterality: Right - Knee, dehiscent surgical incision Type of Debridement: Excisional debridement Anesthesia Used: 5% Lidocaine Gel Depth: Down to and including healthy tissue, in the subcutaneous layer Percentage of wound debrided: 100 Instrument Used: 5mm curette Tissue Removed: Bioburden and nonviable tissue; 3 non-absorbable surgical sutures Severity: Fat Layer Exposed Amount of bleeding with debridement: Mild Bleeding Controlled with: Compression and gauze Patient tolerated procedure well During the course of the patient's right knee dehiscent incision debridement, 3 non-absorbable subcutaneous sutures were identified, and were removed. These were removed during the course of debridement, and using a sterile forceps and cuticle scissors. Assessment/Plan Assessment: This is a 44-year-old morbidly obese female, with severe lymphedema in both lower extremities. She has previously undergone right total knee replacement surgery, the prosthesis of which became infected, and required placement with an antibiotic spacer and removal of the prosthesis. The prosthesis was subsequently replaced. The procedures are documented chronologically above. The patient presents at this time with an apparent wound infection and dehiscence of the inferior pole of her right knee surgical incision. While it is presumed that there is no extension into the underlying joint space, this cannot be totally excluded. Plan: Laboratory tests have been ordered, with results as follows: Sodium 136, potassium 4.0, chloride 108, BUN 13, creatinine 0.80, glucose 102, calcium 8.9, total bilirubin 0.50, AST 15, ALT 19, alkaline phosphatase 88, total protein 8.5, albumin 3.7, serum prealbumin 15.9, white blood count 7.0, hemoglobin 11.3, hematocrit 35.7, platelets 303,000, sed rate 70. Swab cultures were obtained of the patient's right knee wound at her initial visit, for both aerobic and anaerobic bacterial growth. The initial results were positive for Enterococcus faecalis. Based upon sensitivity results, the patient was placed on amoxicillin 1 g p.o. 3 times daily for 10 days, which continues. However, since the initial culture results were available, additional bacterial isolates have been identified. Another aerobic bacteria, Kocuria kristinae, has been identified. In addition, 3 anaerobic bacteria have been isolated, including a Bacteroides species, Prevotella Bivia, and and anaerobic cocci. As result of these isolates, both aerobic and anaerobic, and the complicated nature of the patient's infection, we are to seek consultation with our Infectious Disease service, Dr. Vega, who will be asked to evaluate the patient and recommend appropriate management. It is learned today that the patient was seen yesterday at the [facility], where a radiologist aspirated her right knee joint. It is presumed that cultures were to be obtained, and results will be requested. The complicated nature of the patient's presenting problems suggest that a multidisciplinary approach to management is warranted. The patient's dehiscent right knee incisional wound will be managed in our facility. We will await the recommendations of Dr. Vega from an infectious disease standpoint. We will also await the results of the right knee aspiration performed at the [facility] yesterday, in anticipation that a multidisciplinary approach will be of benefit should the cultures be positive. A noninvasive lower extremity arterial study is to be obtained in the near future. The patient has been advised to elevate her lower extremities as much as possible. She is to elevate her lower extremities to heart level, or higher. She is to continue sleeping on a flat mattress at night. Activity has been encouraged. Prolonged, idle sitting has been discouraged. Weight loss has been recommended. We will ultimately implement some form of compression once the results of her noninvasive lower extremity arterial study are known. Ultimately, we intend to refer the patient to our Lymphedema Clinic, though such referral must await complete healing of her wound. We are to continue treatment of the dehiscent surgical right knee wound using saline-moistened Nu Gauze packing on a daily basis. Thus far, there appears to have been some benefit to this management, as the wound appears to be diminishing in size. The patient has been instructed in the appropriate means of packing, with anticipation that she will be assisted by her son. The patient is to return in 1 week for reassessment. The patient is not a smoker. Influenza vaccine was not administered today. Patient weighs 280 pounds. She stands 5 feet 5 inches tall. Her BMI is 46.6, which places her in a class III obesity category. Weight loss has been recommended, in collaboration with her primary care physician has been advised.
== END 2020-05-16 23:59 ==
LOC: WC 11:30
PROVIDERS: Referring Provider Surgery; Visit Provider Surgery
DX: I89.0 Lymphedema, not elsewhere classified (principal); T81.41XS Infection following a procedure, superficial incisional surgical site, sequela; T81.31XD Disruption of external operation (surgical) wound, not elsewhere classified, subsequent encounter; Z87.39 Personal history of other diseases of the musculoskeletal system and connective tissue; Z96.651 Presence of right artificial knee joint; R32 Unspecified urinary incontinence; M19.90 Unspecified osteoarthritis, unspecified site; F41.9 Anxiety disorder, unspecified; F32.9 Major depressive disorder, single episode, unspecified; F11.11 Opioid abuse, in remission; E66.01 Morbid (severe) obesity due to excess calories; Z68.42 Body mass index [BMI] 45.0-49.9, adult; Z96.653 Presence of artificial knee joint, bilateral
CPT/HCPCS: 11042; 36415; 80053; 84134; 85025; 85652; 86140

== ENCOUNTER → 2020-08-18 11:32 | Outpatient (CLI) | payer MEDICAID, SELFPAY ==
[2020-08-18 13:09] LABS: Amphetamine Urine VISTA NEGATIVE (<1000 ng/mL); Barbiturate Urine VISTA NEGATIVE (< 200 ng/mL); Benzodiazepine Urine VISTA NEGATIVE (< 200 ng/mL); Cocaine Urine VISTA NEGATIVE (< 300 ng/mL); Ecstacy Urine VISTA NEGATIVE (< 500 ng/mL); Methadone Urine VISTA NEGATIVE (< 300 ng/mL); PCP Urine VISTA NEGATIVE (< 25 ng/mL); THC Urine VISTA NEGATIVE (< 50 ng/mL); Vista UDS pH Range 6
== END ==
PROVIDERS: Referring Provider Anesthesiology Pain Medicine; Visit Provider Anesthesiology Pain Medicine
DX: F11.20 Opioid dependence, uncomplicated (principal)
CPT/HCPCS: 80307

== ENCOUNTER → 2021-05-29 14:14 | Outpatient (CLI) | payer MEDICAID, SELFPAY ==
--- NOTE | 2021-05-29 14:27 | RAD_ITS ---
STUDY: X-RAY - PELVIS AND RIGHT HIP REASON FOR EXAM: Female, 45 years old. HIP PAIN TECHNIQUE: 3 views of the pelvis and hip. COMPARISON: None. FINDINGS: There is a non-specific bowel gas pattern. Normal visualized soft tissue structures. Normal bilateral iliac wings, sacroiliac joints and visualized sacrum. Normal bilateral superior and inferior pubic rami. Normal pubic symphysis. Normal bilateral ischial tuberosities. Normal visualized femoral head. Normal acetabulum. Normal hip joint. RAD/HIP, UNI W/ Pelvis 2-3 Views IMPRESSION: No fracture or malalignment. Electronically Signed: Jones Benson MD (Brooks) at 18:15 EST , Service support ,
== END ==
PROVIDERS: Referring Provider Anesthesiology Pain Medicine; Visit Provider Anesthesiology Pain Medicine
DX: M25.551 Pain in right hip (principal)
CPT/HCPCS: 73502